=== PATIENT | male | born 1960 ===

== ENCOUNTER → 2019-03-28 | Outpatient (REF) ==
--- NOTE | 2019-03-28 21:37 | REP ---
Clinical: Pain and disability. Technique: AP, lateral, coned-down views of the lumbosacral spine. Findings: Alignment and lordosis maintained. Vertebral bodies intact. No acute fracture or subluxation. Mild/early moderate multilevel degenerative changes primarily involving L3-4 through L5-S1 including marginal spurring, endplate sclerosis, disc space narrowing, and hypertrophic facet changes. Impression: Mild/early moderate multilevel degenerative changes. Electronically Signed by Shar Bah MD 03/28/2019 09:29 P
--- NOTE | 2019-03-28 22:04 | REP ---
Clinical: Right shoulder pain. Technique: Internal rotation, external rotation, and Y view of the right shoulder. Findings: Subtle inferior spurring at the acromioclavicular joint noted. Glenohumeral joint is intact and normal. Subacromial space is normal. No periarticular calcifications, loose bodies, or erosive changes are appreciated. No acute fracture or dislocation. Impression: Mild degenerative changes at the acromioclavicular joint. Electronically Signed by Shar Bah MD 03/28/2019 09:55 P
== END ==
LOC: M SMT 13:09
PROVIDERS: ATTEND Internal Medicine
DX: Z00.00 Encounter for general adult medical examination without abnormal findings (principal)